=== PATIENT | female | born 2000 | race African-American/Black ===

== ENCOUNTER 2021-06-30 10:13 | Emergency (ER) | payer SELFPAY ==
[~2021-06-30] VITALS: Ht 162.6 cm; Wt 95.0 kg
[2021-06-30 12:00] VITALS: BP 113/74
[2021-06-30] MEDS ORDERED: ONDANSETRON PF 4 MG/2 ML VIAL. IVP ONE (12:15)
[2021-06-30] MEDS ORDERED: IV NORMAL SALINE 1,000ML 1,000 ML IV ONE (12:15)
[2021-06-30 12:33] LABS: BASO % 1 % (0-3); EOS # 0.1 x10^3/uL (0.0-0.7); EOS % 1 % (0-3); HEMOGLOBIN 12.6 g/dL (12.0-15.5); LYMPH # 2.7 x10^3/uL (1.0-4.8); LYMPH % 36 % (24-48); MEAN CORPUSCULAR HEMOGLOBIN 27 pg (25-35); MEAN CORPUSCULAR HGB CONC 33 g/dL (31-37); MEAN CORPUSCULAR VOLUME 83 fL (79-100); MONO # 0.5 x10^3/uL (0.0-1.1); MONO % 6 % (0-9); NEUT # 4.3 x10^3uL (1.8-7.7); NEUT % 57 % (31-73); PLATELET COUNT 390 x10^3/uL (140-400); RED BLOOD COUNT 4.58 x10^6/uL (3.50-5.40); RED CELL DISTRIBUTION WIDTH 13.6 % (11.5-14.5); WHITE BLOOD COUNT 7.6 x10^3/uL (4.0-11.0)
[2021-06-30] MEDS ORDERED: KETOROLAC 30 MG/ML VIAL. IVP ONE (12:45)
[2021-06-30 12:48] LABS: CALCIUM 8.8 mg/dL (8.5-10.1); CREATININE 0.7 mg/dL (0.6-1.0); GFR 127.8; POTASSIUM 3.9 mmol/L (3.5-5.1)
[2021-06-30 12:54] LABS: ALBUMIN 3.6 g/dL (3.4-5.0); TOTAL BILIRUBIN 0.2 mg/dL (0.2-1.0); TOTAL PROTEIN 7.2 g/dL (6.4-8.2)
[2021-06-30 13:08] LABS: BILIRUBIN,URINE NEG (NEG); CLARITY,URINE CLEAR; COLOR,URINE YELLOW; GLUCOSE,URINE NEG (NEG)
[2021-06-30 13:09] LABS: BACTERIA,URINE 0 /HPF (0-FEW); NITRITE,URINE NEG (NEG); RBC,URINE 0 /HPF (0-2); SQUAMOUS EPITHELIAL CELL,UR MANY /LPF; UROBILINOGEN,URINE 0.2 mg/dL (0.2 mg/dL); WBC,URINE 0 /HPF (0-4)
--- NOTE | 2021-06-30 13:25 | RAD ---
US PELVIS W/TV History: Pelvic, vaginal bleeding. Comparison: None. Technique: Sonographic examination of the pelvis was performed with transabdominal and transvaginal t echnique. Findings: Uterus- Uterine parenchyma: Homogeneous without fibroids. Uterine measurements: 6.3 x 3.2 x 4.1 cm Cervix: A few benign nabothian cysts at the cervix.. Endometrium- Endometrial Stripe: No abnormal fluid collections in the endometrial cavity, no obvious mass, and no abnormal blood flow within the endometrium by Doppler. Thickness: 3 mm. Adnexa- Right Ovary: Contains numerous peripheral subcentimeter cysts. Size: 4.4 x 2.1 x 3.3 cm Doppler: Normal. Left Ovary: Contains numerous peripheral subcentimeter cysts. Size: 4.6 x 1.7 x 3.3 cm Doppler: Normal. Other: No abnormal adnexal masses. No abnormal free fluid in the pelvis. Impression: 1. No acute pelvic abnormality. 2. Polycystic ovarian morphology. Correlate for polycystic ovarian syndrome. Electronically signed by: Dallin Tavarez MD (06/30/2021 1:23 PM) [id number]
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
== END 2021-06-30 14:41 | disposition home or self-care (01) ==
LOC: ER 10:13
DX: R10.2 Pelvic and perineal pain (principal); R93.5 Abnormal findings on diagnostic imaging of other abdominal regions, including retroperitoneum; N89.8 Other specified noninflammatory disorders of vagina; Z91.013 Allergy to seafood; Z88.2 Allergy status to sulfonamides
CPT/HCPCS: 36415; 76830; 76856; 80053; 81001; 81025; 83690; 85025; 96374; 96375; 99284; J1885; J2405; J7030